=== PATIENT | female | born 1970 | race Caucasian/White ===

== ENCOUNTER 2018-04-07 00:57 | Emergency (ER) | payer OTHER ==
[2018-04-07 01:09] VITALS: BP 193/95; PULSE 73; TEMP 97.2; BMI 34.0
--- NOTE | 2018-04-07 01:28 | PDOC ---
History of Present Illness - General History Source: Patient Exam Limitations: No Limitations - History of Present Illness Initial Comments: 04/07/18 02:38 The patient is a 48 year old female, with a significant past medical history of HTN, kidney stones, asthma and shingles (2016), who presents to the emergency department with, s/p mechanical fall right knee and LE pain. As per patient, her pain onset after slipping and falling while rushing to the elevator. She denies any LOC or head/neck injury. She denies any worsening or alleviating factors. She denies recent fevers, chills, headache or dizziness. She denies recent nausea, vomit, diarrhea or constipation. She denies recent dysuria, frequency, urgency or hematuria. She denies recent chest pain or shortness of breath. Allergies: NKDA <Ender Lynn - Last Filed: 04/07/18 04:20> <Caryn Solomon - Last Filed: 04/07/18 04:22> - General Chief Complaint: Pain, Acute Stated Complaint: RIGHT KNEE PAIN Time Seen by Provider: 04/07/18 01:27 Past History <Ender Lynn - Last Filed: 04/07/18 04:20> - Past Medical History Asthma: Yes COPD: No GI Disorders: Yes (GALLSTONES) HTN: Yes Kidney Stones: Yes - Immunization History Td Vaccination: Yes TDAP Vaccination: No Immunization Up to Date: Yes - Suicide/Smoking/Psychosocial Hx Smoking Status: No Smoking History: Unknown if ever smoked Years of Tobacco Use: 0 Have you smoked in the past 12 months: Yes Number of Cigarettes Smoked Daily: 10 If you are a former smoker, when did you quit?: March Cigars Per Day: 0 'Breaking Loose' booklet given: 06/20/15 Hx Alcohol Use: Yes (OCCASIONALLY) Drug/Substance Use Hx: No Substance Use Type: None <Caryn Solomon - Last Filed: 04/07/18 04:22> - Past Medical History Allergies/Adverse Reactions: Allergies Allergy/AdvReac Type Severity Reaction Status Date / Time No Known Allergies Allergy Verified 04/07/18 02:01 Home Medications: Ambulatory Orders NK [No Known Home Medication] 04/07/18 Review of Systems - Review of Systems Able to Perform ROS?: Yes Comments:: 04/07/18 02:38 GENERAL/CONSTITUTIONAL: No fever or chills. No weakness. HEAD, EYES, EARS, NOSE AND THROAT: No change in vision. No ear pain or discharge. No sore throat. GASTROINTESTINAL: No nausea, vomiting, diarrhea or constipation. GENITOURINARY: No dysuria, frequency, or change in urination. CARDIOVASCULAR: No chest pain or shortness of breath. RESPIRATORY: No cough, wheezing, or hemoptysis. MUSCULOSKELETAL: RLE and knee pain. No neck or back pain. SKIN: No rash NEUROLOGIC: No headache, vertigo, loss of consciousness, or change in strength/ sensation. ENDOCRINE: No increased thirst. No abnormal weight change. HEMATOLOGIC/LYMPHATIC: No anemia, easy bleeding, or history of blood clots. ALLERGIC/IMMUNOLOGIC: No hives or skin allergy. All Other Systems: Reviewed and Negative <Ender Lynn - Last Filed: 04/07/18 04:20> *Physical Exam - Vital Signs Last Vital Signs Temp Pulse Resp BP Pulse Ox 97.2 F L 73 20 193/95 H 99 04/07/18 00:58 04/07/18 00:58 04/07/18 00:58 04/07/18 00:58 04/07/18 00:58 - Physical Exam Comments: 04/07/18 02:38 GENERAL: Awake, in no acute distress HEAD: No signs of trauma ENT: Moist mucosa NECK: Normal ROM, supple, no lymphadenopathy or JVD. LUNGS: Breath sounds equal, clear to auscultation bilaterally. No wheezes, and no crackles. Normal work of breathing. HEART: Regular rate and rhythm, normal S1 and S2, no murmurs, rubs or gallops ABDOMEN: Soft, nontender, normoactive bowel sounds. No guarding. Non- distended. BACK: No midline tenderness. +EXTREMITIES: RLE: Mild right ankle, diffuse 10/10 tenderness to the RLE: thigh , calf, knee, and ankle. Sensation intact. Significant pain on straight leg raise. DP/PT pulses 2+ and symmetric. Warm and well perfused. No clubbing or cyanosis. No erythema. NEUROLOGICAL: Alert, and fully oriented x4, Cranial nerves II through XII grossly intact. Normal speech, normal gait. DTRs 2/4 bilaterally. SKIN: Warm, Dry, normal turgor, no rashes or lesions noted. <Ender Lynn - Last Filed: 04/07/18 04:20> - Vital Signs Last Vital Signs Temp Pulse Resp BP Pulse Ox 97.2 F L 73 20 193/95 H 99 04/07/18 00:58 04/07/18 00:58 04/07/18 00:58 04/07/18 00:58 04/07/18 00:58 <Caryn Solomon - Last Filed: 04/07/18 04:22> Moderate Sedation - Procedure Monitoring Vital Signs: Procedure Monitoring Vital Signs Temperature 97.2 F L 04/07/18 00:58 Pulse Rate 73 04/07/18 00:58 Respiratory Rate 20 04/07/18 00:58 Blood Pressure 193/95 H 04/07/18 00:58 O2 Sat by Pulse Oximetry (%) 99 04/07/18 00:58 <Ender Lynn - Last Filed: 04/07/18 04:20> - Procedure Monitoring Vital Signs: Procedure Monitoring Vital Signs Temperature 97.2 F L 04/07/18 00:58 Pulse Rate 73 04/07/18 00:58 Respiratory Rate 20 04/07/18 00:58 Blood Pressure 193/95 H 04/07/18 00:58 O2 Sat by Pulse Oximetry (%) 99 04/07/18 00:58 <Caryn Solomon - Last Filed: 04/07/18 04:22> ED Treatment Course - ADDITIONAL ORDERS Additional order review: Laboratory Results 04/07/18 01:37 Urine HCG, Qual Negative - Medications Given in the ED: ED Medications Discontinued Medications Generic Name Dose Route Start Last Admin Trade Name Freq PRN Reason Stop Dose Admin Oxycodone/Acetaminophen 1 combo 04/07/18 01:32 04/07/18 01:44 Percocet 5/325 - PO 04/07/18 01:33 1 combo ONCE ONE Administration <Ender Lynn - Last Filed: 04/07/18 04:20> - RADIOLOGY Radiology Studies Ordered: 04/07/18 04:09 Right femur, right knee, right tib-fib, right foot. <Caryn Solomon - Last Filed: 04/07/18 04:22> Medical Decision Making - Medical Decision Making 04/07/18 04:11 48-year-old female status post fall with acute right knee pain X-rays of the femur and knee tib-fib and foot show no obvious acute fracture Patient to be placed in the immobilizer with crutches and recommended orthopedic follow-up 04/07/18 04:15 <Caryn Solomon - Last Filed: 04/07/18 04:22> *DC/Admit/Observation/Transfer - Attestations Scribe Attestion: 04/07/18 02:48 Documentation prepared by Ender Lynn, acting as medical superintendent for Caryn Solomon DO. <Ender Lynn - Last Filed: 04/07/18 04:20> - Discharge Dispostion Decision to Admit order: No <Caryn Solomon - Last Filed: 04/07/18 04:22> Diagnosis at time of Disposition: Right knee sprain - Discharge Dispostion Disposition: HOME Condition at time of disposition: Stable - Patient Instructions Printed Discharge Instructions: How to Use Crutches, DI for Knee Sprain, How to Use a Knee Immobilizer - Post Discharge Activity Forms/Work/School Notes: Back to Work
[2018-04-07] MEDS ORDERED: KETOROLAC TROMETHAMINE 60 MG/2 ML VIAL IM ONE (02:34)
[2018-04-07] MEDS ORDERED: KETOROLAC TROMETHAMINE 60 MG/2 ML VIAL ONE (02:36)
[2018-04-07] MEDS ORDERED: KETOROLAC TROMETHAMINE 30 MG/1 ML VIAL IVPUSH ONE (02:40)
== END 2018-04-07 04:53 | disposition home or self-care (01) ==
LOC: JER 00:57
PROC: 3E0333Z Introduction of Anti-inflammatory into Peripheral Vein, Percutaneous Approach (ICD-10-PCS; principal; 2018-04-07)
DX: S83.91XA Sprain of unspecified site of right knee, initial encounter (principal); W18.09XA Striking against other object with subsequent fall, initial encounter; Y93.89 Activity, other specified; Y92.89 Other specified places as the place of occurrence of the external cause
CPT/HCPCS: 73552-TC-RT-FY; 73560-TC-RT-FY; 73590-TC-RT-FY; 73630-TC-RT-FY; 84703; 99282-25

== ENCOUNTER 2020-03-17 09:09 | Emergency (ER) | payer OTHER ==
[2020-03-17 09:15] VITALS: BP 174/113; PULSE 87; TEMP 97.8; BMI 32.1
[2020-03-17] MEDS ORDERED: TETRACAINE 0.5% OPHTH SOLN 2 ML BOTTLE ONE (09:29)
== END 2020-03-17 10:22 | disposition home or self-care (01) ==
LOC: JERFT 09:09
DX: H57.89 Other specified disorders of eye and adnexa (principal)
CPT/HCPCS: 99283-25

== ENCOUNTER 2020-06-18 08:50 | Emergency (ER) | payer OTHER ==
[2020-06-18 09:02] VITALS: BP 185/87; PULSE 66; TEMP 98.1; BMI 32.1
[2020-06-18] MEDS ORDERED: LIDOCAINE VISCOUS 2% ORAL/TOP 20 ML UNIT-DOSE CUP MM ONE (10:22)
[2020-06-18] MEDS ORDERED: IBUPROFEN 600 MG TABLET (FP) PO ONE ×2 (10:22→10:42)
[2020-06-18] MEDS ORDERED: LIDOCAINE VISCOUS 2% ORAL/TOP 20 ML UNIT-DOSE CUP ONE (10:42)
== END 2020-06-18 11:48 | disposition home or self-care (01) ==
LOC: JER 08:50
DX: K12.30 Oral mucositis (ulcerative), unspecified (principal)
CPT/HCPCS: 99283-25

== ENCOUNTER 2022-02-03 07:03 | Emergency (ER) | payer OTHER ==
[2022-02-03 07:10] VITALS: BP 151/101; PULSE 98; TEMP 98.8; BMI 28.3
[2022-02-03] MEDS ORDERED: ACETAMINOPHEN 1000 MG/100 ML BAG IVPB ONE (07:48)
[2022-02-03] MEDS ORDERED: ONDANSETRON 4 MG/2 ML VIAL IVPUSH ONE (07:48)
[2022-02-03] MEDS ORDERED: SODIUM CHLORIDE 1,000 ML IV ONE (07:48)
[2022-02-03] MEDS ORDERED: FAMOTIDINE 20 MG/50 ML IVPB 20 MG/50 ML MG IVPB ONE ×2 (07:48→09:25)
[2022-02-03 08:58] LABS: BASO % 0.6 % (0-2.0); EOS % 1.6 % (0-4.5); HEMATOCRIT 42.4 % (32.4-45.2); HEMOGLOBIN 13.8 GM/dL (10.7-15.3); LYMPH % 7.4 % (8-40); MCH 27.9 pg (25.7-33.7); MCHC 32.5 g/dl (32.0-36.0); MEAN CELL VOLUME 85.9 fl (80-96); MEAN PLT VOLUME 8.7 fl (7.5-11.1); MONO % 7.3 % (3.8-10.2); NEUT % 83.1 % (42.8-82.8); PLATELET COUNT 188 10^3/uL (134-434); RBC 4.94 M/mm3 (3.60-5.2); RDW 13.3 % (11.6-15.6); WHITE BLOOD COUNT 4.7 K/mm3 (4.0-10.0)
[2022-02-03] MEDS ORDERED: ACETAMINOPHEN INJECTION 100 ML IVPB ONE (09:24)
[2022-02-03] MEDS ORDERED: ONDANSETRON 4 MG/2 ML VIAL ONE (09:24)
[2022-02-03 09:26] LABS: CALCIUM 8.9 mg/dL (8.5-10.1)
[2022-02-03 09:27] LABS: ALBUMIN 3.9 g/dl (3.4-5.0); BLOOD UREA NITROGEN 6.8 mg/dL (7-18); MAGNESIUM 1.8 mg/dL (1.8-2.4)
[2022-02-03 09:29] LABS: CREATININE 0.7 mg/dL (0.55-1.3)
[2022-02-03 09:30] LABS: BILIRUBIN,TOTAL 0.4 mg/dL (0.2-1); TOT PROT 7.5 g/dl (6.4-8.2)
== END 2022-02-03 11:15 | disposition home or self-care (01) ==
LOC: JER 07:03
PROC: 3E033GC Introduction of Other Therapeutic Substance into Peripheral Vein, Percutaneous Approach (ICD-10-PCS; principal; 2022-02-03)
DX: R10.13 Epigastric pain (principal); R11.2 Nausea with vomiting, unspecified
CPT/HCPCS: 36415; 80053; 82550; 83690; 83735; 84484; 84703; 85025; 93005; 93010; 99284-25

== ENCOUNTER 2022-04-05 07:29 | Emergency (ER) | payer OTHER ==
[2022-04-05 07:38] VITALS: BP 164/95; PULSE 61; RESP 18; TEMP 98; BMI 40.2
[2022-04-05] MEDS ORDERED: ACETAMINOPHEN 325 MG TABLET (FP) PO ONE (08:05)
[2022-04-05] MEDS ORDERED: KETOROLAC TROMETHAMINE 15 MG/ML VIAL IM ONE (08:05)
[2022-04-05] MEDS ORDERED: LIDOCAINE 5% TOPICAL PATCH TP ONE (08:06)
[2022-04-05] MEDS ORDERED: LIDOCAINE 5% TOPICAL PATCH ONE (08:22)
[2022-04-05] MEDS ORDERED: KETOROLAC TROMETHAMINE 15 MG/ML VIAL ONE (08:22)
[2022-04-05] MEDS ORDERED: ACETAMINOPHEN 325 MG TABLET (FP) ONE (08:22)
[2022-04-05] MEDS ORDERED: METHOCARBAMOL 500 MG TABLET PO ONE ×2 (08:58→09:04)
[2022-04-05] MEDS ORDERED: METHOCARBAMOL 500 MG TABLET ONE (09:33)
[2022-04-05] MEDS ORDERED: LIDOCAINE PATCH REMOVAL MC SCH (22:00)
== END 2022-04-05 10:20 | disposition home or self-care (01) ==
LOC: JER 07:29
PROC: 3E023GC Introduction of Other Therapeutic Substance into Muscle, Percutaneous Approach (ICD-10-PCS; principal; 2022-04-05)
DX: S13.4XXA Sprain of ligaments of cervical spine, initial encounter (principal); S39.012A Strain of muscle, fascia and tendon of lower back, initial encounter; V49.40XA Driver injured in collision with unspecified motor vehicles in traffic accident, initial encounter
CPT/HCPCS: 72050-TC-FY; 72070-TC-FY; 72100-TC-FY; 99284-25

== ENCOUNTER 2023-05-07 17:01 | Observation (INO) | payer OTHER ==
[2023-05-07] MEDS ORDERED: ACETAMINOPHEN INJECTION 100 ML IVPB ONE (18:51)
[2023-05-07] MEDS ORDERED: ONDANSETRON 4 MG/2 ML VIAL ONE (18:51)
[2023-05-07] MEDS ORDERED: FAMOTIDINE 20 MG/50 ML IVPB 20 MG/50 ML MG IVPB ONE (18:52)
[2023-05-07 18:56] LABS: BASO % 0.4 % (0-2.0); EOS % 0.1 % (0-4.5); HEMATOCRIT 40.7 % (32.4-45.2); HEMOGLOBIN 13.8 GM/dL (10.7-15.3); LYMPH % 7.8 % (8-40); MCHC 33.9 g/dl (32.0-36.0); MEAN CELL VOLUME 82.7 fl (80-96); MONO % 3.1 % (3.8-10.2); NEUT % 88.6 % (42.8-82.8); PLATELET COUNT 213 10^3/uL (134-434); RBC 4.92 M/mm3 (3.60-5.2); RDW 13.5 % (11.6-15.6); WHITE BLOOD COUNT 10.3 K/mm3 (4.0-10.0)
[2023-05-07 19:02] LABS: INR 1.1 (0.83-1.09); PROTHROMBIN TIME (PATIENT) 12.8 SEC (9.7-13.0)
[2023-05-07] MEDS: SODIUM CHLORIDE 0.9% 500 ML INFUS.BAG IV ONE (19:04)
[2023-05-07] MEDS: ACETAMINOPHEN 1000 MG/100 ML BAG IVPB ONE (19:04)
[2023-05-07 19:05] LABS: ACTIVATED PTT 29.5 SECONDS (25.2-36.5)
[2023-05-07] MEDS: ONDANSETRON 4 MG/2 ML VIAL IVPUSH ONE (19:05)
[2023-05-07] MEDS: FAMOTIDINE 20 MG/50 ML IVPB 20 MG/50 ML MG IVPB ONE (19:05)
[2023-05-07 19:16] LABS: POTASSIUM 4.3 mmol/L (3.5-5.1)
[2023-05-07 19:20] LABS: ALBUMIN 4.2 g/dl (3.4-5.0); MAGNESIUM 1.9 mg/dL (1.8-2.4)
[2023-05-07 19:21] LABS: BLOOD UREA NITROGEN 9.2 mg/dL (7-18)
[2023-05-07 19:23] LABS: CREATININE 0.7 mg/dL (0.55-1.3)
[2023-05-07 19:25] LABS: BILIRUBIN,TOTAL 0.6 mg/dL (0.2-1); TOT PROT 8.1 g/dl (6.4-8.2)
[2023-05-07] MEDS: METOCLOPRAMIDE HCL INJECTION 10 MG/2 ML VIAL IVPB ONE (20:24)
[2023-05-07 22:03] LABS: URINE APPEARANCE Clear; URINE BILIRUBIN Negative (NEGATIVE); URINE COLOR Yellow; URINE GLUCOSE (UA) Negative (NEGATIVE); URINE KETONE 15 mg/dl (NEGATIVE); URINE LEUK ESTERASE Negative (NEGATIVE); URINE NITRITE Negative (NEGATIVE); URINE PROTEIN Trace (NEGATIVE); URINE UROBILINOGEN 0.2 mg/dL (0.2-1.0)
[2023-05-08] MEDS ORDERED: ONDANSETRON 4 MG/2 ML VIAL IVPUSH PRN (01:08)
[2023-05-08] MEDS ORDERED: ACETAMINOPHEN 325 MG TABLET (FP) PO PRN (02:04)
[2023-05-08] MEDS ORDERED: TRIMETHOBENZAMIDE HCL 200MG/2ML INJ IM PRN (02:06)
[2023-05-08] MEDS: LACTATED RINGERS SOLUTION 1,000 ML/1,000 ML INFUS.BAG IV SCH (02:32)
[2023-05-08 04:52] VITALS: RESP 20
[2023-05-08 05:13] VITALS: BMI 39.4
[2023-05-08 07:55] LABS: BASO % 0.3 % (0-2.0); EOS % 0.2 % (0-4.5); HEMATOCRIT 37.2 % (32.4-45.2); HEMOGLOBIN 12.8 GM/dL (10.7-15.3); LYMPH % 22.3 % (8-40); MCH 28.8 pg (25.7-33.7); MCHC 34.5 g/dl (32.0-36.0); MEAN CELL VOLUME 83.4 fl (80-96); MEAN PLT VOLUME 8.4 fl (7.5-11.1); MONO % 5.9 % (3.8-10.2); NEUT % 71.3 % (42.8-82.8); PLATELET COUNT 191 10^3/uL (134-434); RBC 4.46 M/mm3 (3.60-5.2); RDW 13.3 % (11.6-15.6); WHITE BLOOD COUNT 8.4 K/mm3 (4.0-10.0)
[2023-05-08 08:01] LABS: POTASSIUM 3.2 mmol/L (3.5-5.1)
[2023-05-08 08:04] LABS: CALCIUM 8.4 mg/dL (8.5-10.1)
[2023-05-08 08:05] LABS: ALBUMIN 3.3 g/dl (3.4-5.0); BLOOD UREA NITROGEN 8.8 mg/dL (7-18); MAGNESIUM 1.9 mg/dL (1.8-2.4)
[2023-05-08 08:08] LABS: CREATININE 0.7 mg/dL (0.55-1.3); PHOSPHOROUS 2.7 mg/dL (2.5-4.9)
[2023-05-08 08:09] LABS: BILIRUBIN,TOTAL 0.5 mg/dL (0.2-1); TOT PROT 6.6 g/dl (6.4-8.2)
[2023-05-08 10:04] VITALS: BP 148/82; PULSE 86; TEMP 98.2
[2023-05-08] MEDS: PANTOPRAZOLE SODIUM 40 MG VIAL IVPUSH SCH (10:06)
[2023-05-08] MEDS: ENOXAPARIN NA (PORCINE) 40 MG/0.4 ML DISP.SYRIN SQ SCH (10:06)
[2023-05-08] MEDS: LOSARTAN POTASSIUM 25 MG TABLET PO SCH (10:06)
[2023-05-08] MEDS: POTASSIUM CHLORIDE TABS 20 MEQ TABLET.ER (FP) PO ONE (10:08)
== END 2023-05-08 14:37 | disposition home or self-care (01) ==
LOC: JER 17:01 → JERBED 23:55 → J4S 05-08 04:35
PROVIDERS: ADMIT Student in an Organized Health Care Education/Training Program; ATTEND Internal Medicine
PROC: 3E023GC Introduction of Other Therapeutic Substance into Muscle, Percutaneous Approach (ICD-10-PCS; principal; 2023-05-07)
PROC: 3E033NZ Introduction of Analgesics, Hypnotics, Sedatives into Peripheral Vein, Percutaneous Approach (ICD-10-PCS; 2023-05-07)
PROC: 3E033GC Introduction of Other Therapeutic Substance into Peripheral Vein, Percutaneous Approach (ICD-10-PCS; 2023-05-07)
PROC: 3E0337Z Introduction of Electrolytic and Water Balance Substance into Peripheral Vein, Percutaneous Approach (ICD-10-PCS; 2023-05-07)
DX: K52.9 Noninfective gastroenteritis and colitis, unspecified (principal); K76.0 Fatty (change of) liver, not elsewhere classified; I44.7 Left bundle-branch block, unspecified; R11.10 Vomiting, unspecified; I10 Essential (primary) hypertension; N20.0 Calculus of kidney; Z87.891 Personal history of nicotine dependence; Z90.49 Acquired absence of other specified parts of digestive tract; I45.81 Long QT syndrome; Z29.89 Encounter for other specified prophylactic measures
CPT/HCPCS: 0241U-QW; 36415; 70450-TC; 74018-TC-FY; 74177-TC; 80053; 81003; 82550; 83605; 83690; 83735; 84100; 84484; 84703; 85025; 85610; 85730; 87086; 93005; 93010; 96361; 96365; 96372; 96375; 99285-25; G0378; J0131; Q9967

== ENCOUNTER 2023-08-30 07:34 | Inpatient (IN) | payer OTHER ==
[2023-08-30 08:53] LABS: BASO % 0.8 % (0-2.0); EOS % 2.4 % (0-4.5); HEMATOCRIT 40.9 % (32.4-45.2); LYMPH % 36.2 % (8-40); MCH 28.2 pg (25.7-33.7); MCHC 34.2 g/dl (32.0-36.0); MEAN CELL VOLUME 82.3 fl (80-96); MEAN PLT VOLUME 8.4 fl (7.5-11.1); MONO % 5.7 % (3.8-10.2); NEUT % 54.9 % (42.8-82.8); PLATELET COUNT 246 10^3/uL (134-434); RBC 4.98 M/mm3 (3.60-5.2); WHITE BLOOD COUNT 5.2 K/mm3 (4.0-10.0)
[2023-08-30 08:59] LABS: INR 0.91 (0.83-1.09); PROTHROMBIN TIME (PATIENT) 10.5 SEC (9.7-13.0)
[2023-08-30 09:02] LABS: ACTIVATED PTT 32.5 SECONDS (25.2-36.5)
[2023-08-30 09:10] LABS: ALBUMIN 4.2 g/dl (3.4-5.0); CALCIUM 9.1 mg/dL (8.5-10.1)
[2023-08-30 09:12] LABS: BLOOD UREA NITROGEN 15.8 mg/dL (7-18)
[2023-08-30 09:15] LABS: CREATININE 0.7 mg/dL (0.55-1.3)
[2023-08-30 09:16] LABS: TOT PROT 7.6 g/dl (6.4-8.2)
[2023-08-30 09:17] LABS: BILIRUBIN,TOTAL 0.3 mg/dL (0.2-1)
[2023-08-30 09:23] LABS: EPI CELLS >36 /uL (0-25.1); HYALINE CASTS 3 /uL (0-3.1); PH,URINE 5.5 (5.0-8.0); URINE APPEARANCE CLEAR; URINE BACTERIA 135 /uL (0-1359); URINE BILIRUBIN NEGATIVE (NEGATIVE); URINE COLOR YELLOW; URINE GLUCOSE (UA) NEGATIVE (NEGATIVE); URINE KETONE NEGATIVE (NEGATIVE); URINE LEUK ESTERASE 1+ (NEGATIVE); URINE NITRITE NEGATIVE (NEGATIVE); URINE PROTEIN TRACE (NEGATIVE); URINE RBC 38 /uL (0-23.9); URINE UROBILINOGEN 0.2 mg/dL (0.2-1.0); URINE WBC 16 /uL (0-25.8)
[2023-08-30] MEDS ORDERED: ASPIRIN 325 MG TABLET ONE (15:26)
[2023-08-30] MEDS ORDERED: ROSUVASTATIN CA 20 MG TABLET ONE (15:27)
[2023-08-30] MEDS: ROSUVASTATIN CA 40 MG TABLET PO ONE (15:33)
[2023-08-30] MEDS: ASPIRIN 325 MG TABLET PO ONE (15:33)
[2023-08-30] MEDS: ROSUVASTATIN CA 20 MG TABLET PO ONE (15:56)
[2023-08-30] MEDS: ATORVASTATIN CA 80 MG TABLET (FP) PO ONE (16:15)
[2023-08-30] MEDS ORDERED: CEFTRIAXONE 1 GM/50 ML BAG ONE (17:56)
[2023-08-30] MEDS: LOSARTAN 50MG/HCTZ 12.5MG 1 TAB PO ONE (19:23)
[2023-08-30] MEDS: hydrALAZINE HCL 20 MG/ML VIAL IVPUSH ONE ×2 (20:16→20:30)
[2023-08-31 02:20] VITALS: BMI 40.0
[2023-08-31 09:22] LABS: HEMATOCRIT 41.3 % (32.4-45.2); HEMOGLOBIN 13.8 GM/dL (10.7-15.3); MCHC 33.5 g/dl (32.0-36.0); MEAN CELL VOLUME 83.4 fl (80-96); PLATELET COUNT 232 10^3/uL (134-434); RBC 4.95 M/mm3 (3.60-5.2); RDW 13.5 % (11.6-15.6)
[2023-08-31 09:40] LABS: POTASSIUM 4.1 mmol/L (3.5-5.1)
[2023-08-31 09:41] LABS: CALCIUM 9.3 mg/dL (8.5-10.1)
[2023-08-31 09:42] LABS: BLOOD UREA NITROGEN 13.8 mg/dL (7-18)
[2023-08-31 09:45] LABS: CREATININE 0.6 mg/dL (0.55-1.3)
[2023-08-31 09:50] LABS: N-TERMINAL BNP 39.1 pg/ml (5-125)
[2023-08-31] MEDS: ENOXAPARIN NA (PORCINE) 40 MG/0.4 ML DISP.SYRIN SQ SCH (12:27)
[2023-08-31] MEDS: LOSARTAN 50MG/HCTZ 12.5MG 1 TAB PO SCH (12:28)
[2023-08-31] MEDS: ASPIRIN COATED 81 MG TABLET.EC PO SCH (12:28)
[2023-08-31] MEDS: FLUTICASONE PROP 0.05% 16 GM NASAL SPRAY NS SCH (13:17)
[2023-08-31] MEDS ORDERED: ACETAMINOPHEN 325 MG TABLET (FP) PO PRN (18:29)
[2023-08-31] MEDS: ROSUVASTATIN CA 20 MG TABLET PO SCH (21:50)
[2023-09-02 06:21] LABS: HEMATOCRIT 39.9 % (32.4-45.2); HEMOGLOBIN 13.4 GM/dL (10.7-15.3); MCH 28.1 pg (25.7-33.7); MCHC 33.5 g/dl (32.0-36.0); MEAN CELL VOLUME 83.9 fl (80-96); MEAN PLT VOLUME 8.4 fl (7.5-11.1); PLATELET COUNT 220 10^3/uL (134-434); RBC 4.75 M/mm3 (3.60-5.2); RDW 13.3 % (11.6-15.6); WHITE BLOOD COUNT 5.8 K/mm3 (4.0-10.0)
[2023-09-02 06:36] LABS: POTASSIUM 4.1 mmol/L (3.5-5.1)
[2023-09-02 06:38] LABS: BLOOD UREA NITROGEN 20.6 mg/dL (7-18); CALCIUM 8.7 mg/dL (8.5-10.1)
[2023-09-02 06:41] LABS: CREATININE 0.6 mg/dL (0.55-1.3)
[2023-09-02] MEDS ORDERED: LOSARTAN 50MG/HCTZ 12.5MG 1 TAB PO SCH (07:09)
[2023-09-02] MEDS ORDERED: HYDROCHLOROTHIAZIDE 12.5 MG CAPSULE (FP) PO SCH (10:00)
[2023-09-02] MEDS ORDERED: LOSARTAN POTASSIUM 50 MG TABLET PO SCH (10:00)
[2023-09-02] MEDS: LOSARTAN 50MG/HCTZ 12.5MG 1 TAB PO SCH (10:51)
[2023-09-05 10:53] VITALS: RESP 18
[2023-09-06 09:16] VITALS: BP 137/83; PULSE 63; TEMP 97.7
== END 2023-09-06 11:49 | disposition home or self-care (01) | DRG 45 ==
LOC: JER 07:34 → JERBED 15:02 → J4S 21:40 → OBSVTOIN 09-03 11:04
PROVIDERS: ADMIT Family Medicine; ATTEND Nurse Practitioner
DX: I63.212 Cerebral infarction due to unspecified occlusion or stenosis of left vertebral artery (principal); I08.2 Rheumatic disorders of both aortic and tricuspid valves; I10 Essential (primary) hypertension; E66.9 Obesity, unspecified; E78.00 Pure hypercholesterolemia, unspecified; E78.5 Hyperlipidemia, unspecified; F17.200 Nicotine dependence, unspecified, uncomplicated; I44.7 Left bundle-branch block, unspecified; J32.0 Chronic maxillary sinusitis; J45.909 Unspecified asthma, uncomplicated; R01.1 Cardiac murmur, unspecified; R20.0 Anesthesia of skin; Z68.39 Body mass index [BMI] 39.0-39.9, adult
CPT/HCPCS: 36415; 70450-TC; 70551-TC; 80048; 80053; 80061; 81003; 82550; 83036; 83880; 84439; 84443; 84484; 85025; 85027; 85610; 85730; 86850; 86900; 86901; 93005; 93010; 93306-TC; 93880-TC; 97116-GP; 97161-GP; 99285-25; G0378

== ENCOUNTER 2024-10-01 01:57 | Emergency (ER) | payer OTHER ==
[2024-10-01 02:06] VITALS: BP 135/73; PULSE 62; RESP 18; TEMP 98.4; BMI 37.8
[2024-10-01] MEDS ORDERED: IBUPROFEN 600 MG TABLET (FP) PO ONE (03:38)
[2024-10-01] MEDS: IBUPROFEN 600 MG TABLET (FP) PO ONE (03:39)
== END 2024-10-01 03:40 | disposition home or self-care (01) ==
LOC: JER 01:57
DX: M65.332 Trigger finger, left middle finger (principal)
CPT/HCPCS: 99283-25